=== PATIENT | female | born 1985 | race Caucasian/White ===

== ENCOUNTER 2020-07-24 20:55 | Emergency (ER) | payer BC ==
[~2020-07-24] VITALS: Ht 162.6 cm; Wt 118.2 kg
[2020-07-24 20:59] VITALS: TEMP 98.7
[2020-07-24 21:54] VITALS: BP 147/91; PULSE 78
== END 2020-07-24 22:00 | disposition home or self-care (01) ==
LOC: COL.ER 20:55 → EDBD 20:57 → COL.ER 22:00
DX: T18.128A Food in esophagus causing other injury, initial encounter (principal)
CPT/HCPCS: J2060; J2405; J7030